=== PATIENT | female | born 1975 | race Two or more races ===

== ENCOUNTER 2020-11-27 04:01 | Emergency (ER) | payer MEDICAID ==
[~2020-11-27] VITALS: Ht 162.6 cm; Wt 112.5 kg
[~2020-11-27 04:01] MED LIST: ESTR0.3T; PREMARIN
[2020-11-27 07:47] VITALS: BP 108/63
[2020-11-27] MEDS ORDERED: KETOROLAC TROMETH 60MG/2ML VIAL IM ONE (08:15)
[2020-11-27] MEDS ORDERED: cefTRIAXone SOD 1,000 MG VL IM ONE (08:15)
[2020-11-27] MEDS ORDERED: LIDOCAINE 1% HCL (LOCAL ANESTH.) INJ 20ML MDV ONE (08:17)
== END 2020-11-27 08:33 | disposition home or self-care (01) ==
LOC: ER 04:01
DX: K02.9 Dental caries, unspecified (principal); F17.210 Nicotine dependence, cigarettes, uncomplicated; Z79.899 Other long term (current) drug therapy
CPT/HCPCS: 96372; 99284; J0696; J1885; J2001

== ENCOUNTER 2020-12-11 21:22 | Emergency (ER) | payer MEDICAID ==
[~2020-12-11] VITALS: Ht 162.6 cm; Wt 108.9 kg
[2020-12-11 21:22] VITALS: BP 128/77
== END 2020-12-11 23:54 | disposition left against medical advice (07) ==
LOC: ER 21:22
DX: M54.9 Dorsalgia, unspecified (principal); M25.512 Pain in left shoulder; Z53.21 Procedure and treatment not carried out due to patient leaving prior to being seen by health care provider

== ENCOUNTER → 2021-01-28 | Emergency (ER) | payer MEDICAID ==
[~2021-01-28] VITALS: Ht 170.2 cm; Wt 127.0 kg
[~2021-01-28] MED LIST changes: +ACETAMINOPHEN 325 MG TAB PO ONE
[2021-01-28 22:04] VITALS: BP 127/87
== END | disposition left against medical advice (07) ==
LOC: ER 22:04
DX: R50.9 Fever, unspecified (principal); Z53.21 Procedure and treatment not carried out due to patient leaving prior to being seen by health care provider

== ENCOUNTER 2021-01-30 07:56 | Emergency (ER) | payer MEDICAID ==
[~2021-01-30] VITALS: Ht 170.2 cm; Wt 113.4 kg
[~2021-01-30 07:56] MED LIST changes: -ACETAMINOPHEN 325 MG TAB PO ONE
[2021-01-30 09:38] LABS: Basophils # (auto) 0 10 ^3/uL (0-0.2); Basophils % (auto) 0.5 % (0.0-2.0); Eosinophils # (auto) 0.1 10 ^3/uL (0-0.8); Eosinophils % (auto) 0.6 % (0.0-7.0); Hematocrit 42.9 % (36.0-46.0); Hemoglobin 14.4 g/dL (12.2-16.2); Lymphocytes # (auto) 1.5 10 ^3/uL (0.4-5.4); Lymphocytes % (auto) 17.4 % (10.0-50.0); Mean Corpuscular Hemoglobin 30.8 pg (28.0-32.0); Mean Corpuscular Hgb Conc. 33.5 g/dL (32.0-36.0); Mean Corpuscular Volume 91.9 fL (80.0-100.0); Monocytes # (auto) 0.8 10 ^3/uL (0-1.3); Monocytes % (auto) 9.2 % (0.0-12.0); Neutrophils # (auto) 6.4 10 ^3/uL (1.6-8.6); Neutrophils % (auto) 72.3 % (37.0-80.0); Nucleated Red Blood Cells % 0.1 %; Red Blood Cells 4.66 10^6/uL (4.0-5.20); Red Cell Distribution Width 13.6 % (11.8-14.3); White Blood Cell 8.8 10^3/uL (4.4-10.8)
[2021-01-30 09:54] LABS: Albumin 3.5 g/dL (3.4-5.0); BUN/Creatinine Ratio 9.3; Calcium 7.8 mg/dL (8.5-10.1); Potassium 4.2 mmol/L (3.5-5.1)
[2021-01-30 09:56] LABS: Bilirubin, Total 0.2 mg/dL (0.2-1.0); Total Protein 7.3 g/dL (6.4-8.2)
[2021-01-30 10:08] VITALS: BP 121/78
[2021-01-30] MEDS ORDERED: FAMOTIDINE (10MG/ML) 2ML VL IV ONE (11:15)
[2021-01-30] MEDS ORDERED: KETOROLAC TROMETH 30 MG/ML 1ML VIAL IV ONE (11:15)
[2021-01-30] MEDS ORDERED: SODIUM CHLORIDE 0.9% 1,000 ML IV ONE (11:15)
== END 2021-01-30 13:14 | disposition home or self-care (01) ==
LOC: ER 07:56
DX: K52.9 Noninfective gastroenteritis and colitis, unspecified (principal); F17.210 Nicotine dependence, cigarettes, uncomplicated; Z20.822 Contact with and (suspected) exposure to COVID-19; Z79.899 Other long term (current) drug therapy
CPT/HCPCS: 36415; 80053; 83690; 85025; 87426; 96361; 96374; 96375; 99284; J1885; J3490; J7030

== ENCOUNTER 2022-01-13 12:14 | Emergency (ER) | payer MEDICAID ==
[~2022-01-13] VITALS: Ht 167.6 cm; Wt 105.0 kg
[2022-01-13 13:13] VITALS: BP 133/90
[2022-01-13] MEDS ORDERED: IBUPROFEN 800 MG TAB PO ONE (14:15)
[2022-01-13] MEDS ORDERED: KETOROLAC TROMETH 60MG/2ML VIAL IM ONE (14:15)
[2022-01-13] MEDS ORDERED: IBUP800T27 PO (14:18)
== END 2022-01-13 14:30 | disposition home or self-care (01) ==
LOC: ER 12:14
DX: M19.012 Primary osteoarthritis, left shoulder (principal); E78.5 Hyperlipidemia, unspecified; F17.210 Nicotine dependence, cigarettes, uncomplicated; Z90.710 Acquired absence of both cervix and uterus; Z79.1 Long term (current) use of non-steroidal anti-inflammatories (NSAID); Z79.899 Other long term (current) drug therapy
CPT/HCPCS: 73030; 93005; 96372; 99283; J1885

== ENCOUNTER 2025-03-06 20:48 | Emergency (ER) | payer MEDICAID, OTHER ==
[~2025-03-06] VITALS: Ht 160 cm; Wt 95.8 kg
[~2025-03-06 20:48] MED LIST changes: +IBUP-1456 PO
[2025-03-06] MEDS ORDERED: ACET500T58 PO (21:20)
[2025-03-06] MEDS ORDERED: AUG875T PO (21:20)
[2025-03-06] MEDS ORDERED: IBUP-1455 PO (21:20)
--- NOTE | 2025-03-06 21:20 | ED.PDOC ---
Eye-HPI HPI Comments This patient is a pleasant but morbidly obese 50 year old female who arrives the ED today for evaluation of right-sided upper and lower dental pain concerns for the past few days. Patient states the symptoms started several days ago, but the patient has not had time to go to the dentist for evaluation. The patient states the pain increased significantly today and she has some swelling as well. Patient denies any fever nausea or vomiting. Patient was hypertensive on arrival. Chief Complaint: Tooth Pain Time Seen by MD: 20:59 Primary Care Provider: ALCIDES Chawla Notes: Nurses Notes Allergies: Coded Allergies: NO KNOWN ALLERGIES (Unverified , 03/01/12) Home Meds Active Scripts Ibuprofen (Ibuprofen) 800 Mg Tab, 800 MG PO TID PRN, #30 TAB Prov:TORRIE SONI 01/13/22 Reported Medications [Premarin Table0.3 Mg] (PREMARIN TABLET) 0.3 MG TB No Conflict Check, MG 02/23/13 [Premarin] 6.25 MG No Conflict Check, DAILY 03/01/12 Information Source: Patient Mode of Arrival: Ambulatory Timing: Days Duration: Since onset Prehospital treatment: None Quality: Pain Mouth: Right, Upper, Lower, 1st, Premolar, Carious, Broken, Swelling, Red Onset: Spontaneous Past Medical History PAST MEDICAL HISTORY: Cancer, Depression, High Lipids Surgical History: Hysterectomy RELATIONSHIP ASSOCIATE History: No Pertinent RELATIONSHIP ASSOCIATE History Family History Family History: Reviewed,noncontributory to illness Social History Smoker: Cigarettes Alcohol: Denies ETOH Use Drugs: Denies Drug Use Lives In: Home Constitutional: denies: chills, diaphoresis, fatigue, fever, malaise, sweats, weakness, others EENTM: reports: others (Right-sided upper and lower dental pain); denies: blurred vision, double vision, ear bleeding, ear discharge, ear drainage, ear pain, ear ringing, eye pain, eye redness, hearing loss, mouth pain, mouth swelling, nasal discharge, nose bleeding, nose congestion, nose pain, photopho murphy, tearing, throat pain, throat swelling, voice changes Respiratory: denies: cough, hemoptysis, orthopnea, SOB at rest, shortness of breath, SOB with excertion, stridor, wheezing, others Cardiovascular: denies: chest pain, dizzy spells, diaphoresis, Dyspnea on exertion, edema, irregular heart beat, left arm pain, lightheadedness, palpit ations, PND, syncope, others Gastrointestinal: denies: abdomen distended, abdominal pain, blood streaked b owels, constipated, diarrhea, dysphagia, difficulty swallowing, hematemesis, melena, nausea, poor appetite, poor fluid intake, rectal bleeding, rectal pain, vomiting, others Genitourinary: denies: abnormal vagina bleeding, burning, dyspareunia, dysuria, flank pain, frequency, hematuria, incontinence, pain, , vagina discharge, urgency, others Neurological: denies: dizziness, fainting, headache, left sided numbness, left sided weakness, numbness, paresthesia, pre-existing deficit, right sided numbness, right sided weakness, seizure, speech problems, tingling, tremors, weakness, others Musculoskeletal: denies: back pain, gout, joint pain, joint swelling, muscle pain, muscle stiffness, neck pain, others Integumetry: denies: bruises, change in color, change in hair/nails, dryness, laceration, lesions, lumps, rash, wounds, others Allergic/Immunocompromised: denies: Difficulty Healing, Frequent Infections, Hives, Itching, others Hematologic/Lymphatic: denies: anemia, blood clots, easy bleeding, easy brui sing, swollen glands, others Endocrine: denies: excessive hunger, excessive sweating, excessive thirst, ex cessive urination, flushing, intolerance to cold, intolerance to heat, unexplained weight gain, unexplained weight loss, others Psychiatric: denies: anxiety, bipolar disorder, depression, hopeless, panic disorder, schizophrenia, sleepless, suicidal, others Physical Exam General Appearance: Moderate Distress (Moderate distress due to dental pain concerns.), Obese HEENT: Pharynx Normal, TMs Normal, Other (Patient displays a dental fracture at tooth for with a significant dental radha and probable abscess noted to tooth 30. Localized erythema and edema. No weepage noted. Extensive decay noted. ) Neck: Full Range of Motion, Non-Tender, Normal, Normal Inspection Respiratory: Chest Non-Tender, Lungs Clear, No Accessory Muscle Use, No Respiratory Distress, Normal Breath Sounds Cardiovascular: No Edema, No JVD, No Murmur, No Gallop, Normal Peripheral Pulses, Regular Rate/Rhythm Breast Exam: Deferred Gastrointestinal: No Organomegaly, Non Tender, No Pulsatile Mass, Normal Bowel Sounds, Soft Genitalia: Deferred Pelvic: Deferred Rectal: Deferred Extremities: No calf tenderness, Normal capillary refill, Normal inspection, Normal range of motion, Non-tender, No pedal edema Neurologic: Alert, No Motor Deficits, Normal Affect, Normal Mood, No Sensory Deficits Cerebellar Function: NOT DONE Reflexes: NOT DONE Skin: Dry, Normal Color, Warm Lymphatic: No Adenopathy Was a procedure done? Was a procedure done?: No EENT DIFF Eye: N/A Mouth: Other (Dental abscess, dental radha, dental trauma) X-Ray, Labs, Meds, VS Vital Signs Date Time Temp Pulse Resp B/P (MAP) Pulse Ox O2 Delivery O2 Flow Rate FiO2 03/06/25 20:49 98.0 80 18 140/103 96 98.0 X-Ray, Labs, Meds, VS Comment Advised patient that I will send her home with the antibiotics and pain medication, but the patient needs to follow up with dentist for definitive long- term management of significant dental concerns. Time of 1ST Reevaluation: :17 Reevaluation 1ST: Improved Consultation: PCP, Other (Dentist) Patient Education/Counseling: Diagnosis, Treatment Family Education/Counseling: Diagnosis, Treatment SEPSIS Sepsis Screen Date sepsis recognized/suspect: Mar 06, 2025 Time Sepsis recognized/suspect: 2050 Recent Procedure: No On Antibiotic Therapy: No Respiratory Rate >20: No Heart Rate >90: No Temp<36 C (96.8 F) or >38.3 C: No SBP <90 or MAP <65 mmHG: No New Acute Mental Status Change: No Is the patient on CPAP, BIPAP,: No Vital Signs Date Time Temp Pulse Resp B/P (MAP) Pulse Ox O2 Delivery O2 Flow Rate FiO2 03/06/25 20:49 98.0 80 18 140/103 96 98.0 Departure 1 Departure Time of Disposition: :17 Impression: Primary Impression: Dental abscess Additional Impression: Dental caries Disposition: HOME / SELF CARE / HOMELESS Condition: Stable Additional Instructions: Advise utilizing antibiotics as directed until completion. Additional medication as needed. Patient needs to follow up with dentist for definitive evaluation and management. e-Prescriptions Acetaminophen (Acetaminophen) 500 Mg Tab 500 MG PO Q4HP PRN, #30 TAB Prov: JAY JAY LOWRY PAC 03/06/25 Ibuprofen Micronized (Ibuprofen) 800 Mg Tab 800 MG PO Q8HP PRN, #20 TAB Prov: JAY JAY LOWRY PAC 03/06/25 Amoxicillin & Pot Clavulanate (AUGMENTIN TABLET) 875 Mg Tb 875 MG PO BID for 10 Days, #20 TAB Prov: JAY JAY LOWRY PAC 03/06/25 Discharged With: Self, Friend Critical Care Note Critical Care Time?: No Stability Stability form required: No Heart Score Heart Score: Heart Score Response (Comments) Value History N/A 0 EKG N/A 0 Age N/A 0 Risk Factors N/A 0 Troponin N/A 0 Total 0 JAY JAY LOWRY PAC Mar 06, 2025 21:20
[2025-03-06 21:42] VITALS: BP 146/86; PULSE 82; TEMP 98.4
[2025-03-06 21:45] VITALS: RESP 18; O2SAT 96
[2025-03-06] MEDS: AMOXICILLIN/CLAVUL 875 MG TAB PO ONE (21:47)
[2025-03-06] MEDS: KETOROLAC TROMETH 60MG/2ML VIAL IM ONE (21:48)
[2025-03-06] MEDS: ACETAMINOPHEN 325 MG TAB PO ONE (21:48)
== END 2025-03-06 21:54 | disposition home or self-care (01) ==
LOC: ER 20:48
DX: K04.7 Periapical abscess without sinus (principal); K02.9 Dental caries, unspecified; F17.210 Nicotine dependence, cigarettes, uncomplicated; E78.5 Hyperlipidemia, unspecified; F32.A Depression, unspecified; E66.01 Morbid (severe) obesity due to excess calories; Z90.710 Acquired absence of both cervix and uterus; Z79.899 Other long term (current) drug therapy; Z68.37 Body mass index [BMI] 37.0-37.9, adult
CPT/HCPCS: 96372; 99283; J1885

== ENCOUNTER 2025-04-18 17:26 | Emergency (ER) | payer MEDICAID ==
[~2025-04-18] VITALS: Ht 162.6 cm; Wt 93.7 kg
[~2025-04-18 17:26] MED LIST changes: +ACET500T58 PO; +AUG875T PO; +IBUP-1455 PO
[2025-04-18 17:27] VITALS: BP 143/87; PULSE 83; RESP 16; TEMP 97.5; O2SAT 98
--- NOTE | 2025-04-18 19:13 | DVH ---
CLINICAL INDICATION: Pain and swelling TECHNIQUE: XY L HAND 3V XRAY Comparison: None FINDINGS/IMPRESSION: : There is no evidence of acute fracture or dislocation. 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 Overlying soft tissues are intact.
--- NOTE | 2025-04-18 20:34 | ED.PDOC ---
Back pain HPI HPI Comments PT STATES SHE CAME TO ED BECAUSE LEFT HAND PAIN AND SWELLING X 3 WEEKS AND ALSO TOOTHPAIN Chief Complaint: Upper Extremity Time Seen by MD: 18:11 Primary Care Provider: ALCIDES Chawla Notes: Nurses Notes, Medications, Allergies Allergies: Coded Allergies: NO KNOWN ALLERGIES (Unverified , 03/01/12) Home Meds Active Scripts Clindamycin HCl (Clindamycin Hydrochloride) 300 Mg Cap, 300 MG PO QID for 7 Days, #28 CAP Prov:CHONG MONTANA INTERNET MARKETING SPECIALIST 04/18/25 Methylprednisolone (Medrol Dosepak) 4 Mg Kody, 4 MG PO UD for 6 Days, #21 TAB UAD Prov:CHONG MON[place]NA INTERNET MARKETING SPECIALIST 04/18/25 Acetaminophen (Acetaminophen) 500 Mg Tab, 500 MG PO Q4HP PRN, #30 TAB Prov:JAY JAY LOWRY PAC 03/06/25 Ibuprofen Micronized (Ibuprofen) 800 Mg Tab, 800 MG PO Q8HP PRN, #20 TAB Prov:JAY JAY LOWRY PAC 03/06/25 Amoxicillin & Pot Clavulanate (AUGMENTIN TABLET) 875 Mg Tb, 875 MG PO BID for 10 Days, #20 TAB Prov:JAY JAY LOWRY PAC 03/06/25 Ibuprofen (Ibuprofen) 800 Mg Tab, 800 MG PO TID PRN, #30 TAB Prov:TORRIE SONI 01/13/22 Reported Medications [Premarin Table0.3 Mg] (PREMARIN TABLET) 0.3 MG TB No Conflict Check, MG 02/23/13 [Premarin] 6.25 MG No Conflict Check, DAILY 03/01/12 Information Source: Patient Mode of Arrival: Ambulatory Past Medical History PAST MEDICAL HISTORY: Cancer, Depression, High Lipids Surgical History: Hysterectomy PUMP TESTER History: No Pertinent PUMP TESTER History Family History Family History: Reviewed,noncontributory to illness Social History Smoker: Cigarettes Alcohol: Denies ETOH Use Drugs: Denies Drug Use Lives In: Home All Other Systems: Reviewed and Negative (see hpi) Physical Exam General Appearance: No Apparent Distress, Normal HEENT: Pharynx Normal, Other (MODERATE DECAY MULTIPLE FRONT TEETH AND MOLARS) Neck: Full Range of Motion, Non-Tender Respiratory: Chest Non-Tender, Lungs Clear, No Accessory Muscle Use, No Respiratory Distress, Normal Breath Sounds Cardiovascular: No Edema, No JVD, No Murmur, No Gallop, Normal Peripheral Pulses, Regular Rate/Rhythm Breast Exam: Deferred Gastrointestinal: No Organomegaly, Non Tender, No Pulsatile Mass, Normal Bowel Sounds, Soft Genitalia: Deferred Pelvic: Deferred Rectal: Deferred Extremities: Normal capillary refill, Normal range of motion Musculoskeletal : Location: Left (TRACE EDEMA DORSAL ASPECT OF LEFT HAND MODERATE TENDERNESS ON PALPATION STRENGTH SENSORY MOTION INTACT NO NOTED ECCHYMOSIS OR ANGULATION) Apperance: Normal Neurologic: Alert, No Motor Deficits, Normal Affect, Normal Mood, No Sensory Deficits Cerebellar Function: Normal Reflexes: NOT DONE Skin: Dry, Normal Color, Warm Lymphatic: No Adenopathy Was a procedure done? Was a procedure done?: No Back Pain Differential Dx Differential Diagnosis: Fracture, Musculoskeletal Pain, Strain X-Ray, Labs, Meds, VS Vital Signs Date Time Temp Pulse Resp B/P (MAP) Pulse Ox O2 Delivery O2 Flow Rate FiO2 04/18/25 17:27 97.5 83 16 143/87 98 97.5 Current Medications Medications (Trade) Dose Ordered Sig/George Route Start Time Stop Time Status Last Admin Acetaminophen/ Hydrocodone Bitart (Concepcion 5/325MG Tab) 1 tab ONCE ONCE PO 04/18/25 20:45 04/18/25 20:46 DC 04/18/25 20:52 Amoxicillin/ Clavulanate Potassium (Augmentin Tablet) 875 mg ONCE ONCE PO 04/18/25 20:45 04/18/25 20:46 DC 04/18/25 20:48 Images Reviewed?: Images reviewed and evaluated by me Time of 1ST Reevaluation: 18:11 Reevaluation 1ST: Unchanged Time of 2ND Reevaluation: 20:37 Reevaluation 2ND: Improved Patient Education/Counseling: Diagnosis, Treatment, Need For Follow Up Family Education/Counseling: No Family Present SEPSIS Sepsis Screen Date sepsis recognized/suspect: Apr 18, 2025 Time Sepsis recognized/suspect: 1731 Recent Procedure: No On Antibiotic Therapy: No Respiratory Rate >20: No Heart Rate >90: No Temp<36 C (96.8 F) or >38.3 C: No SBP <90 or MAP <65 mmHG: No New Acute Mental Status Change: No Is the patient on CPAP, BIPAP,: No Physician Orders L Hand 3v Xray (04/18/25 18:15) Vital Signs Date Time Temp Pulse Resp B/P (MAP) Pulse Ox O2 Delivery O2 Flow Rate FiO2 04/18/25 17:27 97.5 83 16 143/87 98 97.5 Medications Medications Dose Ordered Sig/George Route Start Time Stop Time Status Last Admin Dose Admin Acetaminophen/ Hydrocodone Bitart 1 tab ONCE ONCE PO 04/18/25 20:45 04/18/25 20:46 DC 04/18/25 20:52 Amoxicillin/ Clavulanate Potassium 875 mg ONCE ONCE PO 04/18/25 20:45 04/18/25 20:46 DC 04/18/25 20:48 Departure 1 Departure Time of Disposition: 20:35 Impression: Primary Impression: Dental caries Additional Impressions: Dental infection Arthritis of hand, left Disposition: HOME / SELF CARE / HOMELESS Condition: Stable e-Prescriptions Clindamycin HCl (Clindamycin Hydrochloride) 300 Mg Cap 300 MG PO QID for 7 Days, #28 CAP Prov: CHONG MON[place]NA 04/18/25 Methylprednisolone (Medrol Dosepak) 4 Mg Kody 4 MG PO UD for 6 Days, #21 TAB UAD Prov: CHONG MOTNANA 04/18/25 Discharged With: Significant Other Critical Care Note Critical Care Time?: No Stability Stability form required: No CHONG MONTANA Apr 18, 2025 20:34
[2025-04-18] MEDS ORDERED: METH4PAK PO (20:37)
[2025-04-18] MEDS ORDERED: CLIN-203 PO (20:37)
[2025-04-18] MEDS: AMOXICILLIN/CLAVUL 875 MG TAB PO ONE (20:48)
[2025-04-18] MEDS: HYDROcodone-ACET 5/325MG TAB PO ONE (20:52)
== END 2025-04-18 20:56 | disposition home or self-care (01) ==
LOC: ER 17:26
DX: K02.9 Dental caries, unspecified (principal); K04.7 Periapical abscess without sinus; M19.032 Primary osteoarthritis, left wrist; F17.210 Nicotine dependence, cigarettes, uncomplicated; Z90.710 Acquired absence of both cervix and uterus
CPT/HCPCS: 29125; 73130